=== PATIENT | male | born 1950 | race Caucasian/White ===

== ENCOUNTER 2018-05-19 08:04 | Emergency (ER) | payer MEDICARE, BC ==
[2018-05-19] MEDS ORDERED: Ondansetron HCl/PF 4 MG/2 ML Vial ONE (08:17)
[2018-05-19 08:48] LABS: #Eosinphils 0.2 thou/uL (0.0-0.7); #Lymphocytes 1.6 thou/uL (1.20-3.40); #Monocytes 0.5 thou/uL (0.11-0.59); #Neutrophils 2.7 thou/uL (1.40-6.50); %Eosinophils 3.6 % (0.0-10.0); %Monocytes 10.3 % (0.0-10.0); %Neutrophils 54.1 % (42.0-75.0); Hemoglobin 15.7 g/dL (14.0-18.0); Mean Corpuscular HGB CONC 34.6 g/dL (32.0-36.0); Mean Corpuscular Hemoglobin 32.3 pg (27.0-31.0); Mean Corpuscular Volume 93.4 fL (78.0-98.0); Mean Platelet Volume 7.2 fL (7.4-10.4); Platelet Count 242 thou/uL (130-400); Red Blood Cell (RBC) Count 4.87 mill/uL (4.70-6.10)
[2018-05-19] MEDS ORDERED: Fentanyl 100 MCG/2 ML VIAL ONE (08:48)
[2018-05-19 09:01] LABS: ALT (SGPT) 23 U/L (8-55); AST (SGOT) 28 U/L (5-34); Albumin 4.4 g/dL (3.4-4.8); Alkaline Phosphatase 53 U/L (40-150); Anion Gap 16 mmol/L (10-20); BUN (Urea Nitrogen) 18 mg/dL (8.4-25.7); Calc. Creatinine Clearance 0 mL/min (70-130); Calcium 9.2 mg/dL (7.8-10.44); Carbon Dioxide 21 mmol/L (23-31); Chloride 105 mmol/L (98-107); Estimated GFR-MDRD 65; Globulin 2.8 g/dL (2.4-3.5); Glucose 132 mg/dL (80-115); Potassium 3.7 mmol/L (3.5-5.1); Protein, Total 7.2 g/dL (5.8-8.1); Sodium 138 mmol/L (136-145)
[2018-05-19] MEDS ORDERED: Ketorolac Tromethamine 30 MG/ML VIAL ONE (09:57)
--- NOTE | 2018-05-19 10:22 | ULT ---
ULTRASOUND RETROPERITONEUM COMPLETE: (RENAL) DATE: 05-19-18 HISTORY: 68-year-old male with hematuria and left flank pain. FINDINGS: Right kidney: 12 x 5 x 5 cm Left kidney: 13.5 x 6.5 x 7.5 cm No right sided hydronephrosis. Mild left hydronephrosis. Unremarkable urinary bladder. IMPRESSION: 1. Mild left hydronephrosis. 2. See separate report of the concurrent noncontrast CT of abdomen and pelvis. IZZY Garcia POS: JOSÉ MIGUEL
[2018-05-19 10:27] LABS: Bilirubin Negative (Negative); Blood, Urine Large (Negative); Clarity CLEAR (Clear); Glucose, Urine (Dipstick) Negative (Negative); Leukocyte Negative (Negative); Nitrite Negative (Negative); Protein, Urine (Dipstick) Trace mg/dL (Neg-Trace); Specific Gravity, Urine 1.019 (1.002-1.036); Urobilinogen 0.2 mg/dL (0.2-1.0)
[2018-05-19 10:31] LABS: Bacteria/HPF None Seen HPF (None Seen); Hyaline Casts/LPF 0-3 HYALINE CAST LPF (0-3 Hyaline); Pathc Cast-AUWi Flag 0.43 (0-2.49); RBC/HPF GREATER THAN 50-TNTC HPF (0-3); Squamous Epithelial 0-3 HPF (0-3); WBC/HPF 0-3 HPF (0-3)
--- NOTE | 2018-05-19 10:53 | CT ---
CT ABDOMEN NONCONTRAST CT PELVIS NONCONTRAST: (urolithiasis protocol) DATE: 05/19/18. TIME: 9:12 a.m. HISTORY: A 68-year-old male with left flank pain, sudden onset. Hematuria. COMPARISON: Contrast-enhanced CT of 02/08/13. TECHNIQUE: IV injection of iodinated contrast media: none Oral contrast media: none FINDINGS: Other than for urolithiasis, the lack of IV and oral contrast limits the evaluation. There is a 3 x 3 x 3 mm calculus lodged at the left UVJ, causing mild left hydroureteronephrosis. There is another new finding of bilateral renal calculi: At a right renal lower pole calyx, a round 3 mm calculus. At an adjacent right lower pole calyx, a 1 mm calculus. At a left renal lower pole c darcie, a 1 x 2 mm calculus. Small sliding hiatal hernia. Within the limitations of a noncontrast scan , no major abnormality identified involving urinary bladder, abdominal aorta, adrenals, pancreas, vicki er, or spleen. No signs of colonic diverticulitis. No small bowel dilation. No pneumoperitoneum or ascites. Lumbar spondylosis including degenerative facet disease at L4-5. IMPRESSION: 1. Left-sided obstructive uropathy: 3 mm calculus lodged at the left ureterovesical junction, causi ng mild left hydroureteronephrosis. 2. Bilateral mild nephrolithiasis: a few small bilateral renal calculi. IZZY Garcia POS: JOSÉ MIGUEL
== END 2018-05-19 11:06 | disposition home or self-care (01) ==
LOC: ERS 08:04
DX: N13.2 Hydronephrosis with renal and ureteral calculous obstruction (principal)
CPT/HCPCS: 74176; 76770; 80053; 81003; 81015; 85025; 96361; 96374; 96375; J1885; J2270; J2405; J3010

== ENCOUNTER 2022-03-15 10:54 | Emergency (ER) | payer MEDICARE, OTHER ==
[2022-03-15 11:50] LABS: Bacteria/HPF None Seen HPF (None Seen); Bilirubin Negative (Negative); Blood, Urine 2+ (Negative); Clarity Clear (Clear); Glucose, Urine (Dipstick) Normal (Negative); Ketone, Urine Negative (Negative); Leukocyte Negative Leu/uL (Negative); Nitrite Negative (Negative); Protein, Urine (Dipstick) 10 mg/dL (Neg-Trace); RBC/HPF 0-3 HPF (0-3); Specific Gravity, Urine 1.028 (1.002-1.036); Squamous Epithelial None Seen HPF (0-3); Urobilinogen Normal mg/dL (Less than 2); WBC/HPF 0-3 HPF (0-3)
[2022-03-15] MEDS ORDERED: Ondansetron PF 4 MG/2 ML Vial ONE (12:00)
[2022-03-15] MEDS ORDERED: Morphine 4 MG/ML VIAL ONE (12:00)
[2022-03-15 12:14] LABS: #Eosinphils 0.1 thou/uL (0.0-0.7); #Lymphocytes 0.7 thou/uL (1.20-3.40); #Monocytes 0.6 thou/uL (0.11-0.59); #Neutrophils 5.9 thou/uL (1.40-6.50); %Basophils 0.3 % (0.0-1.0); %Eosinophils 0.7 % (0.0-10.0); %Lymphocytes 9.6 % (21.0-51.0); %Monocytes 7.6 % (0.0-10.0); %Neutrophils 81.8 % (42.0-75.0); Hemoglobin 13.1 g/dL (14.0-18.0); Mean Corpuscular HGB CONC 33.8 g/dL (32.0-36.0); Mean Corpuscular Volume 97.9 fL (78.0-98.0); Mean Platelet Volume 7.5 fL (7.4-10.4); Platelet Count 230 thou/uL (130-400); RBC Distribution Width 11.5 % (11.5-14.5); Red Blood Cell (RBC) Count 3.97 mill/uL (4.70-6.10); White Blood Cell (WBC) Count 7.3 thou/uL (4.8-10.8)
[2022-03-15 12:36] LABS: ALT (SGPT) 18 U/L (8-55); AST (SGOT) 22 U/L (5-34); Albumin 3.7 g/dL (3.4-4.8); Alkaline Phosphatase 52 U/L (40-110); Anion Gap 14 mmol/L (10-20); BUN (Urea Nitrogen) 15 mg/dL (8.4-25.7); Bilirubin, Total 1.3 mg/dL (0.2-1.2); Calc. Creatinine Clearance 0 mL/min (70-130); Calcium 8.7 mg/dL (7.8-10.44); Carbon Dioxide 25 mmol/L (23-31); Chloride 97 mmol/L (98-107); Globulin 2.5 g/dL (2.4-3.5); Glucose 106 mg/dL (83-110); Lipase 30 U/L (8-78); Potassium 4.5 mmol/L (3.5-5.1); Protein, Total 6.2 g/dL (5.8-8.1); Sodium 131 mmol/L (136-145)
== END 2022-03-15 13:33 | disposition home or self-care (01) ==
LOC: ERS 10:54
DX: N13.2 Hydronephrosis with renal and ureteral calculous obstruction (principal); Z79.899 Other long term (current) drug therapy
CPT/HCPCS: 36415; 74176; 80053; 81003; 81015; 83690; 85025; J2270; J2405

== ENCOUNTER 2024-02-22 10:45 | Outpatient (CLI) | payer MEDICARE, OTHER | END 2024-02-22 10:46 | disposition home or self-care (01) | LOC: MRI 10:45 | PROVIDERS: ATTEND Nurse Practitioner Family | DX: M54.16 Radiculopathy, lumbar region (principal); M48.05 Spinal stenosis, thoracolumbar region; M48.061 Spinal stenosis, lumbar region without neurogenic claudication; M48.07 Spinal stenosis, lumbosacral region | CPT/HCPCS: 72148 ==

== ENCOUNTER 2025-07-19 15:12 | Outpatient (CLI) | payer MEDICARE, OTHER ==
[2025-07-19 16:06] LABS: #Basophils 0.03 10x3/uL (0.0-0.2); #Eosinophils 0.13 10x3/uL (0.0-0.7); #Monocytes 1.01 10x3/uL (0.11-0.59); #Neutrophils 6.39 10x3/uL (1.40-6.50); %Basophils 0.3 % (0.0-1.0); %Eosinophils 1.5 % (0.0-10.0); %Lymphocytes 14.0 % (21.0-51.0); %Monocytes 11.5 % (0.0-10.0); %Neutrophils 72.5 % (42.0-75.0); Hematocrit 39.8 % (42.0-52.0); Hemoglobin 13.7 g/dL (14.0-18.0); Mean Corpuscular Hemoglobin 31.5 pg (27.0-31.0); Mean Corpuscular Volume 91.5 fL (78.0-98.0); Platelet Count 252 10x3/uL (130-400); Red Blood Cell (RBC) Count 4.35 mill/uL (4.70-6.10); White Blood Cell (WBC) Count 8.81 10x3/uL (4.8-10.8)
[2025-07-19 16:21] LABS: Anion Gap 12 mmol/L (10-20); BUN (Urea Nitrogen) 20 mg/dL (8.4-25.7); Calc. Creatinine Clearance 0 mL/min (70-130); Calcium 9.3 mg/dL (7.8-10.44); Carbon Dioxide 24 mmol/L (23-31); Chloride 101 mmol/L (98-107); Glucose 107 mg/dL (83-110); INR-International Normal Ratio 1.1; PTT 27.1 sec (22.9-36.1); Potassium 4.0 mmol/L (3.5-5.1); Prothrombin Time 13.9 sec (12.0-14.7); Sodium 133 mmol/L (136-145)
== END 2025-07-19 15:13 | disposition home or self-care (01) ==
LOC: LABBT 15:12
PROVIDERS: ATTEND Urology
DX: Z01.812 Encounter for preprocedural laboratory examination (principal); N20.1 Calculus of ureter
CPT/HCPCS: 80048; 85025; 85610; 85730; 87086

== ENCOUNTER 2025-07-23 10:41 | Day surgery (SDC) | payer MEDICARE, OTHER ==
[2025-07-19 15:27] VITALS: BMI 25.1
[2025-07-23] MEDS ORDERED: CEFAZOLIN 2 GM VIAL ONE (14:19)
[2025-07-23] MEDS ORDERED: Rocuronium Bromide 10 MG/ML (10ML VIAL) ONE (16:08)
[2025-07-23] MEDS ORDERED: Lidocaine 1% PF 5 ML VIAL ONE (16:08)
[2025-07-23] MEDS ORDERED: fentaNYL PF 100 MCG/2 ML SYRINGE ONE (16:08)
[2025-07-23] MEDS ORDERED: PROPOFOL 200 MG/20 ML VIAL ONE (16:21)
[2025-07-23] MEDS ORDERED: Ondansetron PF 4 MG/2 ML Vial ONE (16:30)
[2025-07-23] MEDS ORDERED: SUGAMMADEX SODIUM 200 MG/2 ML VIAL ONE (17:20)
[2025-07-23] MEDS ORDERED: Glycopyrrolate 0.2 MG/ML 5 ML SYRINGE ONE (17:29)
== END 2025-07-23 20:01 | disposition home or self-care (01) ==
LOC: SDC 10:41
PROVIDERS: ATTEND Urology
PROC: 0T768DZ Dilation of Right Ureter with Intraluminal Device, Via Natural or Artificial Opening Endoscopic (ICD-10-PCS; principal; 2025-07-23)
DX: N20.1 Calculus of ureter (principal)
CPT/HCPCS: 52356; 74420; J1100; J2405; Q9967; C1769; C2617; J2704